=== PATIENT | male | born 1975 | race Caucasian/White ===

== ENCOUNTER 2024-06-08 10:39 | Emergency (ER) | payer OTHER ==
--- NOTE | 2024-06-08 10:45 | ERPHSYRPT ---
- History of Present Illness Time Seen by Provider: 06/08/24 10:45 Historian: patient Exam Limitations: no limitations Physician History: This is an overweight 49-year-old white male patient who arrives by private vehicle accompanied by his spouse for the complaint of right upper quadrant and epigastric abdominal pain that has been intermittently present for 2 days. The pain just is not going away completely. Patient has not had any nausea vomiting or diarrhea symptoms. He does not have chest pain. He denies shortness of breath. Patient has not had prior abdominal surgeries and has never had a colonoscopy. Patient has a history of hypertension and hyperlipidemia. Timing/Duration: day(s) (2), intermittent Quality: aching Abdominal Pain Onset Location: RUQ, epigastric Pain Radiation: no radiation Severity of Pain-Max: moderate Severity of Pain-Current: moderate Modifying Factors: Improves With: nothing Associated Symptoms: denies symptoms Previous symptoms: no prior history, no recent treatment Allergies/Adverse Reactions: No Known Drug Allergies Allergy (Verified 06/08/24 10:49) Home Medications: Atorvastatin Calcium 10 mg PO DAILY 06/08/24 [History] Lisinopril 10 mg [Zestril 10 MG] 10 mg PO DAILY 06/08/24 [History] Hx Tetanus, Diphtheria Vaccination/Date Given: (unknown) Hx Influenza Vaccination/Date Given: No Hx Pneumococcal Vaccination/Date Given: No Travel Risk - International Travel Have you traveled outside of the country in past 3 weeks: No - Emerging Infectious Disease Are you exhibiting symptoms associated with any current EIDs: No - Review of Systems Constitutional: No Symptoms Eyes: No Symptoms Ears, Nose, & Throat: No Symptoms Respiratory: No Symptoms Cardiac: No Symptoms Abdominal/Gastrointestinal: Abdominal Pain (Right upper quadrant and epigastric) Genitourinary Symptoms: No Symptoms Musculoskeletal: No Symptoms Neurological: No Symptoms Psychological: No Symptoms Endocrine: No Symptoms Hematologic/Lymphatic: No Symptoms Immunological/Allergic: No Symptoms All Other Systems: Reviewed and Negative - Past Medical History Pertinent Past Medical History: No Cardiac History: Hypertension - Past Surgical History Past Surgical History: Yes Musculoskeletal: Orthopedic Surgery Other Surgical History: right knee, left ankle - Social History Smoking Status: Never smoker Exposure to second hand smoke: Yes Drug Use: none Patient Lives Alone: No - Nursing Vital Signs Nursing Vital Signs: Initial Vital Signs Temperature 98.3 F 06/08/24 10:44 Pulse Rate 97 H 02/12/25 10:44 Respiratory Rate 23 06/08/24 10:44 Blood Pressure 153/114 06/08/24 10:44 O2 Sat by Pulse Oximetry 98 06/08/24 10:44 Pain Scale Pain Intensity 5 - Physical Exam General Appearance: no apparent distress, alert, anxiety, obese Eye Exam: PERRL/EOMI, eyes nml inspection Ears, Nose, Throat Exam: normal ENT inspection, moist mucous membranes Neck Exam: normal inspection, non-tender, supple, full range of motion Respiratory Exam: normal breath sounds, lungs clear, airway intact, No chest tenderness, No respiratory distress Cardiovascular Exam: regular rate/rhythm, normal heart sounds, normal peripheral pulses Gastrointestinal/Abdomen Exam: soft, normal bowel sounds, tenderness (Right upper quadrant to palpation), guarding (Right upper quadrant to palpation) Rectal Exam: not done Back Exam: normal inspection, normal range of motion, No CVA tenderness, No vertebral tenderness Extremity Exam: normal inspection, normal range of motion, pelvis stable Neurologic Exam: alert, oriented x 3, cooperative, stone polisher hand II-XII nml as tested, nml cerebellar function, nml station & gait, sensation nml Skin Exam: normal color, warm, dry Lymphatic Exam: No adenopathy SpO2 Interpretation: normal O2 Delivery: Room Air - Course Nursing assessment & vital signs reviewed: Yes Ordered Tests: Active Orders 24 hr Category Date Time Status IV Insertion STAT Care 06/08/24 10:55 Active ABDOMEN AND PELVIS W/0 CONTRAS [CT] Stat Exams 06/08/24 10:55 Completed AMYLASE Stat Lab 06/08/24 11:12 Completed CBC W DIFF Stat Lab 06/08/24 11:12 Completed CMP Stat Lab 06/08/24 11:12 Completed LIPASE Stat Lab 06/08/24 11:12 Completed UA W/RFX UR CULTURE Stat Lab 06/08/24 12:50 Completed Medication Summary Discontinued Medications Generic Name Dose Route Start Last Admin Trade Name Freq PRN Reason Stop Dose Admin Hydromorphone HCl 1 mg 06/08/24 10:55 06/08/24 11:01 Hydromorphone 1 Mg/1ml Inj IV 06/08/24 10:56 1 mg STAT ONE Administration Hydromorphone HCl Confirm 06/08/24 10:59 Hydromorphone 1 Mg/1ml Inj Administered 06/08/24 11:00 Dose 1 mg .ROUTE .STK-MED ONE Ondansetron HCl 4 mg 06/08/24 10:55 06/08/24 11:01 Ondansetron Hcl 4 Mg/2 Ml Vial IV 06/08/24 10:56 4 mg STAT ONE Administration Ondansetron HCl Confirm 06/08/24 10:59 Ondansetron Hcl 4 Mg/2 Ml Vial Administered 06/08/24 11:00 Dose 4 mg .ROUTE .STK-MED ONE Lab/Rad Data: Laboratory Result Diagrams 06/08/24 11:12 06/08/24 11:12 Laboratory Results 06/08/24 06/08/24 06/08/24 Range/Units 12:50 11:12 11:12 WBC 3.7 L (4.23-9.07) x10^3/uL RBC 5.63 (4.63-6.08) x10^6/uL Hgb 18.0 H (13.7-17.5) g/dL Hct 51.9 H (40.1-51.0) % MCV 92.2 (79.0-92.2) fL MCH 32.0 (25.7-32.2) pg MCHC 34.7 (32.3-36.5) g/dL RDW 12.6 (11.6-14.4) % Plt Count 228 (163-337) x10^3/uL MPV 10.0 (9.4-12.4) fL Gran % 63.9 (34.0-67.9) % Immature Gran % (Auto) 0.3 (0.001-0.429) % Nucleat RBC Rel Count 0.0 (0.00-0.2) % Eos # (Auto) 0.02 L (0.04-0.54) x10^3/uL Immature Gran # (Auto) 0.01 (0.001-0.031) x10^3u/L Absolute Lymphs (auto) 1.01 L (1.32-3.57) x10^3/uL Absolute Monos (auto) 0.26 L (0.30-0.82) x10^3/uL Absolute Nucleated RBC 0.00 (0.00-0.012) x10^3u/L Lymphocytes % 27.7 (21.8-53.1) % Monocytes % 7.1 (5.3-12.2) % Eosinophils % 0.5 L (0.8-7.0) % Basophils % 0.5 (0.2-1.2) % Absolute Granulocytes 2.33 (1.78-5.38) x10^3/uL Basophils # 0.02 (0.01-0.08) x10^3/uL Sodium 140 (135-145) mmol/L Potassium 4.8 (3.5-5.1) mmol/L Chloride 103 (98-107) mmol/L Carbon Dioxide 29 (22-30) mmol/L Anion Gap 12.0 (5-15) MEQ/L BUN 12 (9-20) mg/dL Creatinine 1.09 (0.66-1.25) mg/dL Estimated GFR 82.2 ML/MIN Glucose 144 H (74-106) mg/dL Calcium 9.4 (8.4-10.2) mg/dL Total Bilirubin 1.20 (0.2-1.3) mg/dL AST 43 (17-59) U/L ALT 36 (0-50) U/L Alkaline Phosphatase 62 (38-126) U/L Serum Total Protein 8.4 H (6.3-8.2) g/dL Albumin 4.9 (3.5-5.0) g/dL Amylase 56 (30-110) U/L Lipase 74 (23-300) U/L Urine Color Yellow (Yellow) Urine Appearance Clear (Clear) Urine pH 5.5 (4.6-8.0) Ur Specific [place] 1.020 (1.005-1.030) Urine Protein Negative (Negative) Urine Glucose (UA) Negative (Negative) mg/dL Urine Ketones Negative (Negative) Urine Blood Negative (Negative) Urine Nitrite Negative (Negative) Urine Bilirubin Negative (Negative) Urine Urobilinogen 1.0 A (0.2) mg/dL Ur Leukocyte Esterase Negative (Negative) U Hyaline Cast (Auto) NONE SEEN (0-2) /LPF Urine Microscopic RBC 0-2 (0-5) /HPF Urine Microscopic WBC 0-2 (0-5) /HPF Ur Epithelial Cells None Seen (None Seen) /HPF Urine Bacteria None Seen (None Seen) /HPF Urine Culture Reflexed NO (NO) - Progress Progress: improved, pain not gone completely Progress Note: 06/08/24 10:53 My medical decision making and the assignment of moderate complexity to this patient's medical issue today is based on review of the patient's past medical history, review the patient's medication list, reviewed patient drug allergy list, history present illness and physical findings on examination. The workup in this patient includes placement of intravenous line, CBC, CMP, amylase, lipase, urinalysis, CT scan of the abdomen pelvis without contrast. Differential diagnosis includes but is not limited to cholecystitis/cholelithiasis, colitis, pancreatitis, abdominal wall muscular pain 06/08/24 13:[address] scan of the abdomen pelvis without contrast was interpreted by the radiologist and I reviewed the impression. The impression states chronic colonic diverticulosis. Chronic bony findings. No free air. No free fluid. No acute findings on this noncontrast exam. 06/08/24 13:48 I interpreted the patient's laboratory data results. Based on the laboratory data results, there are no acute, emergent medical issues. Counseled pt/family regarding: lab results, diagnosis, rad results Medical Desision Making - Independent Historian Additional History obtained from: Spouse - Diagnostic Testing Diagnostic test were ordered, analyzed, and reviewed by me: Yes Radiological Interpretation: Reviewed by me, Teleradiologist Report - Risk of complications The pt has a mod risk of morbidity or mortality based on: Need for prescription drug management - Departure Departure Disposition: Home Clinical Impression: RUQ abdominal pain Condition: Stable Critical Care Time: No Referrals: DOCTOR,NO FAMILY [Primary Care Provider] - Follow up/PCP as directed Additional Instructions: Drink plenty of clear liquids before advancing your diet. Avoid fatty greasy spicy foods. Call your primary care provider today, 06/08/2024, to make arrangements for follow-up appointment to be seen in the next 3 to 5 days and to order an outpatient gallbladder ultrasound if indicated. Prescriptions: Hydrocodone/APAP 5/325 [[place] 5/325 mg] 1 each PO Q8H PRN PRN #6 tablet MDD 3 PRN Reason: Pain
[2024-06-08 10:53] VITALS: TEMP 98.3
[2024-06-08] MEDS ORDERED: Hydromorphone 1 mg/ml Injection ONE (10:59)
[2024-06-08] MEDS ORDERED: Zofran 4 MG/2 ML VIAL ONE (10:59)
[2024-06-08] MEDS: Hydromorphone 1 mg/ml Injection IV ONE (11:01)
[2024-06-08] MEDS: Zofran 4 MG/2 ML VIAL IV ONE (11:01)
[2024-06-08 11:12] LABS: Absolute Neutrophil Ct (ANC) 2.33 x10^3/uL (1.78-5.38); BASOPHIL % 0.5 % (0.2-1.2); Basophil (Absolute #) 0.02 x10^3/uL (0.01-0.08); Eosinophil % 0.5 % (0.8-7.0); Eosinophil (Absolute #) 0.02 x10^3/uL (0.04-0.54); Hematocrit 51.9 % (40.1-51.0); IMMATURE GRAN # 0.01 x10^3u/L (0.001-0.031); IMMATURE GRAN % 0.3 % (0.001-0.429); Lymphocyte (Absolute #) 1.01 x10^3/uL (1.32-3.57); Lymphocytes % 27.7 % (21.8-53.1); Mean Cell Volume 92.2 fL (79.0-92.2); Mean Corpuscular Hgb Concent. 34.7 g/dL (32.3-36.5); Monocyte (Absolute #) 0.26 x10^3/uL (0.30-0.82); Monocytes % 7.1 % (5.3-12.2); Neutrophil % 63.9 % (34.0-67.9); Platelet Count 228 x10^3/uL (163-337); Red Blood Count 5.63 x10^6/uL (4.63-6.08); Red Cell Distribution Width 12.6 % (11.6-14.4); White Blood Count 3.7 x10^3/uL (4.23-9.07)
[2024-06-08 11:49] LABS: ALBUMIN 4.9 g/dL (3.5-5.0); BILIRUBIN,TOTAL 1.2 mg/dL (0.2-1.3); Calcium 9.4 mg/dL (8.4-10.2); Creatinine 1 1.09 mg/dL (0.66-1.25); EST GLOMERULAR FILTRATION RATE 82.2 ML/MIN; Potassium 4.8 mmol/L (3.5-5.1); Total Protein 8.4 g/dL (6.3-8.2)
--- NOTE | 2024-06-08 12:52 | XRAY ---
Indication: Right upper quadrant/epigastric pain 3 days. Multiple contiguous axial images obtained through the abdomen and pelvis without contrast. Comparison: None Lung bases clear. Heart not enlarged. Noncontrasted stomach and bowel loops appear nonobstructed with normal appendix. Mild scattered colonic diverticulosis without diverticulitis. No free fluid/air. Remaining liver, gallbladder, pancreas, spleen, adrenal glands, kidneys, ureters, and bladder are unremarkable for noncontrast exam. Minimal aortic calcifications without AAA. Osseous structures intact with minimal degenerative changes throughout spine and mild degenerative changes both hips. No ventral or inguinal hernias. Impression: Chronic findings including colonic diverticulosis, arteriosclerotic disease, and chronic bony findings. No acute findings on this noncontrast exam.
[2024-06-08 13:13] LABS: Appearance Clear (Clear); Bacteria None Seen /HPF (None Seen); Bilirubin Negative (Negative); Blood Negative (Negative); Epithelial Cells None Seen /HPF (None Seen); Glucose, Urine Negative (Negative); Hyaline Casts NONE SEEN /LPF (0-2); Ketones Negative (Negative); Leukocyte Esterase Negative (Negative); Nitrite Negative (Negative); Ph 5.5 (4.6-8.0); Protein,Urine Dip Negative (Negative); RBC 0-2 /HPF (0-5); WBC 0-2 /HPF (0-5)
[2024-06-08 13:58] VITALS: BP 139/94; PULSE 66; RESP 15; O2SAT 98
== END 2024-06-08 14:06 | disposition home or self-care (01) ==
LOC: ED 10:39
DX: R10.11 Right upper quadrant pain (principal); R10.13 Epigastric pain; I10 Essential (primary) hypertension; E78.5 Hyperlipidemia, unspecified; Z79.891 Long term (current) use of opiate analgesic; Z79.899 Other long term (current) drug therapy
CPT/HCPCS: 36415; 74176; 80053; 81001; 82150; 83690; 85025; 96374; 96375; 99284; J1171; J2405